=== PATIENT | male | born 1985 | race African-American/Black ===

== ENCOUNTER 2021-03-19 16:49 | Emergency (ER) | payer OTHER ==
[~2021-03-19] VITALS: Ht 188 cm; Wt 81.6 kg
== END 2021-03-19 20:14 | disposition home or self-care (01) ==
LOC: ER 17:32
DX: U07.1 COVID-19 (principal); R50.9 Fever, unspecified; R05.9 Cough, unspecified
CPT/HCPCS: 99282; U0002